=== PATIENT | female | born 1975 | race Caucasian/White ===

== ENCOUNTER 2017-09-21 06:00 | Day surgery (SDC) | payer BC ==
[~2017-09-21] VITALS: Ht 167.6 cm; Wt 142.7 kg
[~2017-09-21 06:00] MED LIST: AMARYL2 MG PO; BYSTOLIC10 MG PO; BYSTOLIC20 MG PO; CRANBERRY450 M3 PO; DAILY VITE1 EAC1 PO; HARD NAILS2500 MCG PO; MOTRIN600 MG PO; MUCINEX1200 MG PO; NASACORT10.8 ML BOTH NARES; NASOCORT NS; NEURONTIN300 MG PO; NEXIUM40 MG PO; ONGLYZA5 MG PO; PROBIOTIC 15 B1 EACH PO; SINGULAIR10 MG PO; TRENTAL400 MG PO; VITAMIN C PO; XANAX0.25 MG PO; XANAX0.5 MG PO; XYZAL5 MG PO
[2017-09-21 06:34] VITALS: BP 185/95
[2017-09-21 09:12] VITALS: BP 170/77
[2017-09-21 10:06] VITALS: BP 175/90
== END 2017-09-21 10:15 | disposition home or self-care (01) ==
LOC: SDC 06:00
PROVIDERS: Obstetrics & Gynecology Gynecologic Oncology
PROC: 0UDB8ZX Extraction of Endometrium, Via Natural or Artificial Opening Endoscopic, Diagnostic (ICD-10-PCS; principal; 2017-09-21)
DX: D25.0 Submucous leiomyoma of uterus (principal); N84.0 Polyp of corpus uteri; N93.8 Other specified abnormal uterine and vaginal bleeding; E66.01 Morbid (severe) obesity due to excess calories; Z68.43 Body mass index [BMI] 50.0-59.9, adult; I10 Essential (primary) hypertension; E11.9 Type 2 diabetes mellitus without complications; I73.9 Peripheral vascular disease, unspecified; F41.9 Anxiety disorder, unspecified; K21.9 Gastro-esophageal reflux disease without esophagitis; E78.5 Hyperlipidemia, unspecified; Z87.891 Personal history of nicotine dependence; Z79.84 Long term (current) use of oral hypoglycemic drugs
CPT/HCPCS: 82948; 84702; 88305; J0330; J0690; J1100; J1885; J2250; J2274; J2405; J2710; J3010; J7643; Q0175